=== PATIENT | female | born 1950 | race African-American/Black ===

== ENCOUNTER 2024-06-23 11:33 | Inpatient (IN) | payer MEDICARE, OTHER ==
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
[2024-06-23] MEDS: MORPHINE SULFATE 4 MG/ML SYRINGE IVP STA (12:44)
[2024-06-23] MEDS: KETOROLAC 15 MG/ML 1 ML VIAL IVP STA ×2 (12:45→14:32)
[2024-06-23] MEDS: SODIUM CHLORIDE 0.9% 1,000 ML IV ONE (12:45)
[2024-06-23 12:50] LABS: Basophils % (A) 1 %; Eosinophils # (A) 0.1 k/uL (0-0.7); Eosinophils % (A) 2 %; HCT 43.9 % (34.0-46.0); HGB 13.7 gm/dL (11.4-16.0); Hypochromasia Slight; Lymphocytes % (A) 42 %; MCH 28.9 pg (25.0-35.0); MCHC 31.3 g/dL (31.0-37.0); MCV 92.5 fL (80.0-100.0); Mean Platelet Volume 7.9; Monocytes # (A) 0.3 k/uL (0-1.0); Monocytes % (A) 5 %; Neutrophils # (A) 3.4 k/uL (1.3-7.7); Neutrophils % (A) 48 %; Platelet Count 303 k/uL (150-450); RBC 4.74 m/uL (3.80-5.40); RDW 14.1 % (11.5-15.5); WBC 7.1 k/uL (3.8-10.6)
[2024-06-23 13:05] LABS: ALT 15 U/L (4-34); AST 19 U/L (14-36); African American GFR (CKD) 83 (>60 ml/min/1.73 sqM); Albumin 5.1 g/dL (3.5-5.0); Alkaline Phosphatase 110 U/L (38-126); Anion Gap 11 mmol/L; Blood Urea Nitrogen 13 mg/dL (7-17); Calcium 9.6 mg/dL (8.4-10.2); Carbon Dioxide 27 mmol/L (22-30); Chloride 103 mmol/L (98-107); Creatine Kinase 203 U/L (30-135); Glucose 108 mg/dL (74-99); Non-African American GFR(CKD) 72 (>60 ml/min/1.73 sqM); Potassium 3.9 mmol/L (3.5-5.1); Sodium 141 mmol/L (137-145); Total Bilirubin 0.6 mg/dL (0.2-1.3); Total Protein 8.9 g/dL (6.3-8.2)
[2024-06-23 13:27] LABS: Appearance,Urine Clear (Clear); Bacteria,Urine Rare /hpf; Bilirubin,Urine Negative (Negative); Blood,Urine Negative (Negative); Color,Urine Light Yellow; Glucose,Urine (UA) Negative (Negative); Ketones,Urine Negative (Negative); Leukocyte Esterase,Urine Negative (Negative); Mucus,Urine Rare /hpf; Nitrite,Urine Negative (Negative); Protein,Urine 1+ (Negative); Specific Gravity,Urine 1.016 (1.001-1.035); Squamous Epithelial Cell,Urine 1 /hpf (0-4); WBC,Urine <1 /hpf (0-5)
--- NOTE | 2024-06-23 13:39 | CT ---
EXAMINATION TYPE: CT abdomen pelvis w con DATE OF EXAM: 06/23/2024 COMPARISON: None CLINICAL INDICATION: Female, 73 years old with history of Lower abdominal pain; PHH, Lower abdominal pain. TECHNIQUE: Performed without Oral Contrast and with IV Contrast, patient injected with 100 ml mL of Isovue 300. CT DLP: 1417.[address] CTDI: mGy Automated exposure control for dose reduction was used. FINDINGS: There are mild chronic interstitial and groundglass opacities in the visualized lung bases but no par enchymal consolidation or pleural effusion. The gallbladder is normal without distention, wall thickening, pericholecystic fluid or gallstones. T here is no biliary ductal dilatation. There is no focal mass or organomegaly involving the liver, pancreas, spleen or adrenal glands. There is no solid renal mass or hydronephrosis and there is homogeneous contrast enhancement of the r enal parenchyma. There is a 3 cm simple cortical cyst left kidney. The caliber the abdominal aorta is normal is no retroperitoneal adenopathy or hemorrhage. The bowel loops are normal in caliber and there is no evidence of dilatation or obstruction. No infla mmatory changes are identified in the bowel wall or mesentery. There is no free intraperitoneal air or fluid. No pelvic mass, free fluid, abscess or adenopathy. The osseous structures and soft tissues are intact. IMPRESSION: No significant abnormality seen. [facility], , 06/23/2024 1:37 PM
[2024-06-23] MEDS: HYDROmorphone 1 MG/ML 1 ML SYRINGE IVP STA (14:33)
--- NOTE | 2024-06-23 16:01 | XR ---
EXAMINATION TYPE: XR femur bilateral, XR tibia fibula bilateral DATE OF EXAM: 06/23/2024 CLINICAL INDICATION: Female, 73 years old with history of Pain, pain TECHNIQUE: Two views of the bilateral femurs and legs are obtained. COMPARISON: None FINDINGS: There is abnormal appearance beginning proximal diaphysis extending to the mid to distal d iaphysis of the left femur. There is loss of straight shape with medullary volume loss and cortical t hickening. No obvious bony destruction. Clinical Correlation if there has been remote trauma/fracture and malunion. Otherwise Other etiologies need to be pursued including primary bone lesion. Findings are more concerning if the pain is localized to this level. No suspicious findings in either leg or right femur. Overlying soft tissues are unremarkable [place]. IMPRESSION: As above. [facility], , 06/23/2024 3:59 PM
[2024-06-23] MEDS ORDERED: ACETAMINOPHEN TAB 325 MG TAB PO PRN (18:06)
[2024-06-23] MEDS ORDERED: ONDANSETRON 4 MG/2 ML VIAL IVP PRN (18:06)
[2024-06-23] MEDS ORDERED: NALOXONE 0.4 MG/ML 1 ML VIAL IV PRN (18:06)
[2024-06-23] MEDS ORDERED: IBUPROFEN 400 MG TAB PO PRN (18:06)
[2024-06-23] MEDS: HYDROmorphone 1 MG/ML 1 ML SYRINGE IVP PRN (18:55)
[2024-06-23] MEDS: QUEtiapine 200 MG TAB PO SCH (21:07)
[2024-06-23] MEDS: cloNIDine HCL 0.2 MG TAB PO SCH (21:07)
[2024-06-23] MEDS: IPRATROPIUM-ALBUTEROL 3 ML NEB INHALATION SCH (21:34)
[2024-06-23] MEDS: hydrALAZINE HCL 50 MG TAB PO SCH (22:30)
[2024-06-23] MEDS: Acetaminophen-Codeine 300-30mg TAB PO SCH (22:33)
[2024-06-24] MEDS: PANTOPRAZOLE 40 MG/10 ML VIAL IV SCH (08:28)
--- NOTE | 2024-06-24 12:49 | XR ---
EXAMINATION TYPE: XR lumbar spine 2 or 3V DATE OF EXAM: 06/24/2024 CLINICAL INDICATION: Female, 73 years old with history of pain, pain TECHNIQUE: Frontal and lateral images of the lumbar spine are obtained. COMPARISON: CT abdomen and pelvis from 1 day earlier FINDINGS: There are 5 lumbar type vertebral bodies identified. The lumbar spine shows persistent gr glynn 1 anterolisthesis L4 on L5. Vertebral body heights are maintained. There is moderate disc space n arrowing at L4-L5 level redemonstrated. Overlying arterial vascular calcification is again seen IMPRESSION: As above. [facility], , 06/24/2024 12:47 PM
[2024-06-24] MEDS: HYDROcodone/APAP 5-325MG 1 EACH TAB PO PRN (13:02)
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
[2024-06-24] MEDS: methylPREDNISolone SOD SUCCI 40 MG/ML 1 ML VIAL IV SCH (18:27)
[2024-06-24] MEDS: clonazePAM 1 MG TAB PO SCH (21:37)
--- NOTE | 2024-06-25 07:52 | CT ---
EXAMINATION TYPE: CT chest wo con DATE OF EXAM: 06/25/2024 COMPARISON: None CLINICAL INDICATION: Female, 73 years old with history of cap; PHH, CAP TECHNIQUE: CT scan of the thorax is performed without IV contrast. CT DLP: [address] CTDI: mGy Automated exposure control for dose reduction was used. FINDINGS: There are scattered mild interstitial changes and mild groundglass opacities in the lung bases. These are nonspecific findings and could reflect mild atelectasis with interstitial scarring or fibrosis. The possibility of an acute primarily interstitial inflammatory process is not excluded. There is no airspace consolidation. There is no pleural effusion or pneumothorax. There is no mediastinal, hilar or axillary adenopathy. Limited scanning of the upper abdomen shows no gross abnormality. No focal osseous lesions are seen. IMPRESSION: FINDINGS: Mild groundglass opacities in the lung bases and scattered interstitial opacities as described above. Represent mild chronic changes or a mild acute interstitial inflammation. There is no prior study fo r comparison. [facility], Workstation: [facility], 06/25/2024 7:50 AM
--- NOTE | 2024-06-25 07:56 | CT ---
EXAMINATION TYPE: CT lumbar spine wo con DATE OF EXAM: 06/25/2024 7:44 AM COMPARISON: CLINICAL INDICATION: Female, 73 years old with history of spinal stenosis; PHH, Spinal Stenosis TECHNIQUE: Unenhanced CT of the lumbar spine was performed. Bone and soft tissue window settings are submitted as well as coronal and sagittal reconstructions. CT DLP: [address] CTDI: mGy Automated exposure control for dose reduction was used. FINDINGS: The lumbar vertebral segments are normal in height and there is no evidence of fracture. There is a grade 1 anterolisthesis of L4 on L5 and there is mild L4-5 disc space narrowing indicative of mild degenerative disc disease. The remaining intervertebral disc spaces are well preserved in he ight. There are no large lumbar disc herniations. Small herniations cannot be definitively excluded w ith this technique. There is moderate facet degeneration at the L4-5 and L5-S1 levels. The visualized sacrum and SI joint s normal. Secondary to facet degeneration, thickening of ligamentum flavum and circumferential disc bulge, ther e is a severe spinal stenosis at the L4-5 level. There is no bony neural foraminal stenosis. IMPRESSION: 1. No lumbar spine fracture. 2. Grade 1 anterolisthesis of L4 on L5. 3. Severe L4-5 spinal stenosis 4.Advanced facet degeneration at the L4-5 and L5-S1 levels. [facility], , 06/25/2024 7:54 AM
--- NOTE | 2024-06-25 11:39 | P.CNOR ---
History of Present Illness - [facility] Consult date: 06/25/24 Requesting physician: Sarmad Rubio Consult reason: other (lumbar neuritis) History of present illness: Patient is a 73-year-old female who presents to the emergency department at [facility] yesterday due to lower abdominal/pelvic pain. Orthopedic- spine was consulted by medicine due to lumbar neuritis. Patient was seen at bedside this morning lying in the semirecumbent position on 6 N. patient states she has had back pain for many years and it has gotten worse over the past 3 weeks. Patient does not recall any specific event that occurred 3 weeks ago that led to an increase in pain. Patient states she was just doing every day activities. Patient states she gets increased pain when she tries to stand up. Patient denies the use of a walker or cane at home. Patient denies any falls/traumas. Patient repeatedly states that she has pain in her bones in her legs and is not able to quantify or qualify areas/location of pain in the back or the legs during history. Patient denies any previous orthopedic spine surgery. Patient attempted to take Tylenol No. 3 without any relief in symptoms. Patient denies any saddle anesthesia or issues with bowel/bladder control. Past Medical History Past Medical History: Hypertension Additional Past Medical History / Comment(s): back pain History of Any Multi-Drug Resistant Organisms: None Reported Additional Past Surgical History / Comment(s): tubal Past Psychological History: Bipolar, Depression Smoking Status: Current every day smoker Past Alcohol Use History: None Reported Past Drug Use History: None Reported Medications and Allergies Home Medications Medication Instructions Recorded Confirmed Type cloNIDine HCL [Catapres] 0.2 mg PO BID 01/08/15 06/23/24 History Acetaminophen-Codeine 300-30mg 1 tab PO TID 06/23/24 06/23/24 History [Tylenol w/codeine #3] Ipratropium-Albuterol Nebulize 3 ml INHALATION RT-BID 06/23/24 06/23/24 History [Duoneb 0.5 mg-3 mg/3 ml Soln] QUEtiapine [SEROquel] 200 mg PO HS 06/23/24 06/23/24 History hydrALAZINE HCL [Apresoline] 50 mg PO TID 06/23/24 06/23/24 History Allergies Allergy/AdvReac Type Severity Reaction Status Date / Time trazodone Allergy Unknown Verified 06/23/24 13:45 Physical Examination *Patient denied wanting any physical exam*and repeatedly stated that she is having pain in in the bones in her legs and did not want anyone to examine her Results - Labs Labs: H & H 06/23/24 Range/Units 12:40 Hgb 13.7 (11.4-16.0) gm/dL Hct 43.9 (34.0-46.0) % Result Diagrams: 06/23/24 12:40 06/23/24 12:40 - Diagnostic results CT Scan - lumbar: report reviewed, image reviewed (CT scan lumbar spine has been reviewed. Negative for any evidence of vertebral compression fracture throughout. Positive for central canal stenosis at L4-5 as well as anterior lis thesis of L4 and L5. Positive for degenerative disc disease) Assessment and Plan Assessment: 1. Grade 1 anterolisthesis of L4 and L5; central canal stenosis, L4-5; degenerative disc disease; lumbar spondylosis; low back pain Plan: 1. Grade 1 anterolisthesis of L4 and L5; central canal stenosis, L4-5; degenerative disc disease; lumbar spondylosis; low back pain- CT scan lumbar spine has been reviewed. Negative for any evidence of vertebral compression fracture throughout. Positive for central canal stenosis at L4-5 as well as anterolisthesis of L4 and L5. Positive for degenerative disc disease. Based on findings from imaging and with inability to perform exam due to patient denying any physical examination, orthopedicsspine recommending conservative treatment at this time with PT/OT and pain medication and steroids to help with symptoms. Patient may benefit from epidural steroid injection. At this time we will defer the rest of the management to the medicine team and are recommending potential consult to pain management for further recommendations. Patient may follow-up in the outpatient setting with Dr. Cisneros as needed for spine. At this time orthopedicsspine is signing off. Please do not hesitate to contact us for any further questions. 2. Appreciate medical management 3. Pain management -[place]; Tylenol with codeine 4. DVT prophylaxis -mechanical 5. GI prophylaxis -Protonix 6. PT/OT -weightbearing as tolerated with walker and assistance as needed 7. Encourage incentive spirometer use 8. Appreciate consult Time with Patient: Less than 30
[2024-06-25] MEDS: NICOTINE 21MG/24HR PATCH TRANSDERM SCH (15:37)
[2024-06-25] MEDS: KETOROLAC 15 MG/ML 1 ML VIAL IVP PRN (15:42)
[2024-06-26] MEDS: amLODIPine 5 MG TAB PO SCH (02:52)
[2024-06-27] MEDS: HYDROcodone/APAP 10-325MG 1 EACH TAB PO PRN ×2 (09:13→19:54)
--- NOTE | 2024-06-27 13:46 | NM ---
EXAMINATION TYPE: NM bone scan whole body DATE OF EXAM: 06/27/2024 1:39 PM CLINICAL INDICATION:Female, 73 years old with history of leg pain immobility; COMPARISON: 06/23/2024. TECHNIQUE: Intravenous administration 22.6 mCi Tc 99m MDP followed by multiple scintigraphic images o f the appendicular and axial skeleton. Additionally, small field of view planar anterior and posterio r images of the lumbosacral spine and pelvis. Lastly, coronal, transverse, and sagittal SPECT images of the lumbosacral spine and pelvis were generated for review.Lastly, small [id number] anterior, p osterior and lateral views of the chest were submitted for review. Images acquired 5.5 hours post injection. FINDINGS: No abnormal uptake is identified within the appendicular or axial skeleton to suggest metastatic dise ase. Radiotracer uptake within the expected location of the right patella is asymmetric. There is increased uptake within the bilateral shoulder, sternoclavicular, and sacroiliac joints con sistent with degenerative changes. No other photopenic areas or areas of increased activity are ident ified. Physiologic radiotracer activity is demonstrated in the kidneys and bladder. IMPRESSION: 1. Uptake within the expected location of the right patella possibly femur. Further evaluation with MRI recommended. No definitive correlate on x-ray 06/23/2024. 2. Nothing to suggest metastatic disease. [facility], , 06/27/2024 1:44 PM
--- NOTE | 2024-06-27 14:21 | HP ---
HISTORY AND PHYSICAL female, came in with left leg severe weakness, paralysis, unable to move her legs. She had x-rays that show severe knee arthritis. Lumbar x-ray shows degenerative disk disease in her spine. X-ray of the femurs, no suspicious findings. Abdominal pelvic CT shows cortical cysts, ground-glass opacities in the lung bases. We will start IV steroids. Neurosurgery to see her. CAT scan of her lumbar spine. PT/OT, steroids, bone scan. PROGNOSIS: Guarded. MMODL / IJN: [id number] /
--- NOTE | 2024-06-27 14:21 | PN ---
PROGRESS NOTE A 73-year-old female, discussed with her severe degenerative disk disease and we had Neurosurgery to see her for that. Severe osteoarthritis of knee. PT, OT seeing her. She is getting IV steroids, which appeared to be helping her. Labs reviewed. Vital signs are stable. She has low proteins and elevated CPK. Wait for Orthopedic and Neurosurgery consults. Possible epidural shot on Thursday. Prognosis guarded. MMODL / IJN: [id number] /
--- NOTE | 2024-06-27 14:22 | PN ---
PROGRESS NOTE We will get PT/OT involved to move her legs more, get her walking. Possibly get an epidural in the lumbar spine tomorrow hopefully. Dr. Cisneros consulted for severe lumbar stenosis, which is limiting her walking due to her leg weakness. Solu-Medrol is stopped and her knees have gotten better with severe osteoarthritis of her knees. PHYSICAL EXAMINATION: VITAL SIGNS: Stable, afebrile. CARDIOVASCULAR: S1, S2. LUNGS: Clear. GI: Soft. EXTREMITIES: Strength 3/5 times 4 extremities. ASSESSMENT: 1. Retractable leg pain. 2. Severe lumbar neuropathy. 3. Severe arthritis in the knees. Prognosis is guarded. Continue current treatments. Change pain medicine to [place] 10 as current meds are not working. MMODL / IJN: [id number] /
[2024-06-27] MEDS: HYDROmorphone 0.5 MG/0.5 ML SYRINGE IVP PRN (17:41)
[2024-06-27] MEDS: HEPARIN SODIUM,PORCINE 5,000 UNIT/ML 1 ML VIAL SQ SCH (17:42)
--- NOTE | 2024-06-28 04:04 | PN ---
PROGRESS NOTE SUBJECTIVE: A 73-year-old white female, leg immobility, severe back pain, has an appointment to get epidural tomorrow. OBJECTIVE: CARDIOVASCULAR: S1, S2. HEMATOLOGY: Negative Homans. PSYCH: Fair mood and affect. MUSCULOSKELETAL: Range of motion limited over legs, weakness. PT, OT and possible epidural shot in the morning. Possibly follow up for epidural shot for possible discharge. MMODL / IJN: [id number] /
--- NOTE | 2024-06-28 08:10 | P.PAINPG ---
Objective - Vital Signs Vital signs: Vital Signs Temp 98.2 F 06/28/24 07:57 Pulse 69 06/28/24 07:57 Resp 16 06/28/24 07:57 BP 172/83 06/28/24 07:57 Pulse Ox 98 06/28/24 07:57 FiO2 Intake & Output 06/27/24 06/28/24 06/28/24 18:59 06:59 18:59 Intake Total 598 Balance 598 Intake: Oral 598 Other: Voiding Method Toilet Toilet # Voids 2 2 - Labs CBC & Chem 7: 06/23/24 12:40 06/23/24 12:40 PQRS Measure Charge Sheet Comment: HISTORY OF PRESENT ILLNESS: A 73 yr old inpatient female as a referral from Dr Rubio presents today w severe acute LBP secondary to radiculopathy, spondylosis and facet arthropathy without myelopathy for evaluation. Pt states pain level is provoked at 10 /10 in intensity, constant, localized in the lumbar spine, predominantly axial, sharp in character w occasional shooting pain towards the LEs. Pain is provoked by any movement. Pain is alleviated by medications, repositioning and rest . PMH: OA, HTN, MDD/ Anxiety/ Bipolar PSH: Tubal SH: Daily tobacco use, No ETOH abuse, No illicit drug use FH: Non contributory All: See list Meds: See list incl [place] 10/325mg q4h prn, Ibu 400mg q5h prn, Dilaudid 0.5mg q6h prn REVIEW OF ORGAN SYSTEMS: CONSTITUTIONAL: No fevers or chills. No recent weight loss. NEUROLOGICAL: + numbness and tingling along the distal extremities. No seizure disorders or headaches. MUSCULOSKELETAL: + pain PSYCHIATRIC: Denies current depression or suicidal thoughts. Physical Examinations : Constitutional : Cooperative , not in acute distress . Neurologic : Cranial nerve II to XII intact. No focal neurological deficits. Psychiatric : alert & oriented x 3. Matching mood & appropriate affect. Judgment & insight intact. Musculoskeletal : Cervical Spine Motor strength in the deltoid and biceps: Normal right side. Normal Left side Motor strength biceps and the wrist extensors: Normal right side . Normal left side Motor strength in the triceps muscle: Normal right side. Normal left side Deep tendon reflexes: Normal at the biceps. Normal at Brachioradialis. Normal at triceps Vertebral body tenderness to deep palpation over Cervical facet loading test: positive bilaterally Spurling test: positive bilaterally Neck distraction test: positive bilaterally Linnea sign: positive bilaterally Lumbar spine Motor strength lower extremities ,thigh and legs 5/5 Right side , 5/5 Left side Deep tendon reflexes : Normal Knee Jerk. Normal Ankle Jerk Vertebral body tenderness over L4 Portillo Test positive BL L4-L5 Lumbar facet Loading Test: positive Right / positive Left Range of motion of the lumbar spine Flexion 30 degrees, extension 10 degrees Straight Leg Raise test: Left/ Right positive at degrees Arturo test: positive right / positive left. Severe tenderness over the Sacroiliac joint on the Right / Left sides Gaenslen test: positive bilaterally Seated flexion test: positive bilaterally. Sacral spine : Severe tenderness over the Sacroiliac joint: right side / left side Range of motion: Flexion of the lumbar spine <60 degrees Range of motion: Extension of the lumbar spine <20 degrees Gaenslen's Test positive Arturo test: positive right side / left side Thigh Thrust Test Sacral Thrust Test Imaging: CT non contrast lumbar spine from 06/25/24 reviewed Assessment/ Plan : L4-L5 anterolisthesis, Severe L4-L5 stenosis, L4-S1 advanced facet degeneration Recommendation of TERRY L4-L5 #1. Risks, benefits of procedure discussed and patient verbalized understanding. Admits to anti- coagulant use or medical history of diabetes. Protocol for discontinuation/ continuation of medications hieu procedure discussed. Minimal anesthesia provided, if clinically indicated, consisting of Versed and Fentanyl. All questions answered. I have spent greater than 30 minutes on patient care today. Dr Landrum was available by phone for the evaluation of this patient. The time was used to review the medical records including relevant urine studies and Prescription history (MAPs), review of the available imaging, evaluation and examination of the patient, coordination of care with the medical staff and if applicable referring physicians, as well as creation of the medical record - Pain Location Bilateral Leg Non-Pharmacological Interventions: Position/Reposition Pharmacological Interventions: Discuss Pain Med Options, PRN Medication Generalized Non-Pharmacological Interventions: Darkened Room, Distraction, Emotional/Spiritual Support, Environmental Control Pharmacological Interventions: Discuss Pain Med Options, PRN Medication PQRS Narrative: Smoking Status Current every day smoker Blood Pressure [Left Arm] 163/95 Blood Pressure [Right Arm] 172/83 Blood Pressure 138/71 Pain Intensity [Generalized] 10 Pain Intensity [Bilateral Leg] 8 Pain Intensity 0 Pain Scale Used Lind-Haji (Faces) Scale Used Numeric (1 - 10) Home Medications: Ambulatory Orders cloNIDine HCL [Catapres] 0.2 mg PO BID 01/08/15 Acetaminophen-Codeine 300-30mg [Tylenol w/codeine #3] 1 tab PO TID 06/23/24 Ipratropium-Albuterol Nebulize [Duoneb 0.5 mg-3 mg/3 ml Soln] 3 ml INHALATION RT-BID 06/23/24 QUEtiapine [SEROquel] 200 mg PO HS 06/23/24 hydrALAZINE HCL [Apresoline] 50 mg PO TID 06/23/24 Controlled Substance Measures - Controlled Substance Measures Is patient prescribed a controlled substance at discharge?: No
[2024-06-28] MEDS: IV FLUID CONTINUATION 1,000 ML IV ONE (15:06)
[2024-06-28 15:11] LABS: Glucose,Whole Blood 116 mg/dL (70-110)
[2024-06-28] MEDS ORDERED: fentaNYL (PF) 50 MCG/ML 2 ML AMP ONE (15:25)
[2024-06-28] MEDS ORDERED: methylPREDNISolone ACETATE 80 MG/ML 1 ML VIAL ONE (15:25)
[2024-06-28] MEDS ORDERED: IOPAMIDOL M300 15ML VIAL ONE (15:25)
[2024-06-28] MEDS ORDERED: MIDAZOLAM 2 MG/2 ML VIAL ONE (15:25)
--- NOTE | 2024-06-28 15:41 | P.PCN ---
Date of Procedure: 06/28/24 Procedure(s) Performed: PREOPERATIVE DIAGNOSIS: 1- Lumbar radiculopathy 2-Lumbar spondylosis with Facet arthropathy without myelopathy. 3-lumbar spinal stenosis POSTOPERATIVE DIAGNOSIS: 1-lumbar radiculopathy 2-lumbar spondylosis with facet arthropathy without myelopathy. 3-lumbar spinal stenosis. PROCEDURE 1. Lumbar epidural steroid injection under fluoroscopic guidance at the L4-5 level. (Fluoroscopy imaging was available in radiology department) 2. Lumbar epidurogram. ANESTHESIA: Moderate sedation with Versed 2 mg , and fentanyl 100 micrograms, sedation started at 15:25 , ended at 15:36 ) EBL: Minimal PROCEDURE INDICATION: The patient with low back pain and radiculitis symptoms unresponsive to conservative treatment. Fluoroscopy was used to optimize visualization of the needle placement and to maximize safety. PROCEDURE DESCRIPTION / TECHNIQUE: The patient was seen and identified in the preoperative area. Risks, benefits, complications including but not limited to infections ,bleeding ,allergic reaction to the medications ,nerve damage and not complete pain releife , and alternatives were discussed with the patient. The patient agreed to proceed with the procedure and signed the consent, and vital signs were stable. Patient was taken to the OR and time out was completed. The patient was placed in the prone position on procedure table and a pillow was placed under the abdomen to reduce lumbar lordosis. The lumbosacral area was prepped and draped in the usual sterile fashion.ere closely monitored during the procedure. Vital signs was monitered during the entire procedure. Using anterior-posterior fluoroscopy, the L4-5 interlaminar space was identified and the skin over this site was marked and then infiltrated with 1% lidocaine subcutaneously. Subsequently, a 20-gauge Tuohy epidural needle was inserted and advanced toward the epidural space using the ``Loss of resistance technique and guided by AP and lateral fluoroscopy. The correct needle position in the epidural space was verified with the injection of 2 mL of the water soluble contrast dye Isovue 200 contrast and observing an excellent epidurogram with the epidural spread of the dye, after negative aspiration for blood and CSF and in the absence of paresthesias. Again after negative aspiration, a 6 ml mixture containing 60 mg of Depo-medrol ( Preservetive Free ), and 2 ml of preservative free Normal Saline, and 2 ml of preservative free lidocaine 1% solution was injected and a washout of epidurogram was seen. Needle was withdrawn intact, skin was cleansed, and bandages were applied. COMPLICATIONS: None DISPOSITION / PLANS: The patient was placed in a supine position and transferred to the recovery area in a stable condition for observation. There was no evidence of lower extremity motor or sensory deficit after the procedure. Patient was discharged from the recovery room after meeting discharge criteria. Home discharge instructions were given to the patient by the staff. The patient was reexamined prior to discharge. The patient will schedule a follow up in the clinic in 2-4 weeks.
--- NOTE | 2024-06-28 15:47 | FL ---
EXAMINATION TYPE: FL guided pain mgmt statistic DATE OF EXAM: 06/28/2024 3:40 PM COMPARISON: Pre Operative Images if available both CT/MRI or plain film CLINICAL INDICATION: Female, 73 years old with history of LESI; TECHNIQUE: FL guided pain mgmt statistic, multiple fluoroscopic images provided for procedure. DAP: 0.1295 mGym2 Gycm2 uGym2 cGycm2 or equivalent. FINDINGS: Fluoroscopic images during injection for pain management demonstrate multilevel degeneration changes throughout the spine. No evidence for fracture. No acute process identified. IMPRESSION: 1. No evidence for intraoperative complication. 2. Please see the operative/procedural note for further details. [facility], , 06/28/2024 3:44 PM
[2024-06-28] MEDS: amLODIPine 10 MG TAB PO STA (16:37)
--- NOTE | 2024-06-28 23:25 | PN ---
PROGRESS NOTE She is an female, 73-year-old. She had an epidural today on the lumbar spine and now, she can move her legs really. She is going to go home in the morning. The patient with PT/OT. OBJECTIVE: CARDIOVASCULAR: S1, S2. LUNGS: Clear. GI: Soft. ASSESSMENT: 1. Intractable leg pain, status post lumbar epidural for lumbar radiculopathy. 2. Severe osteoarthritis of the knees. PT/OT. Should go home tomorrow. MMODL / IJN: [id number] /
[2024-06-29 07:54] VITALS: RESP 17
[2024-06-29 14:50] VITALS: BP 142/93; PULSE 85; TEMP 97.8
== END 2024-06-29 14:58 | disposition home or self-care (01) | DRG 552 ==
LOC: EC 11:33 → 6NMEDSUR 18:26 → OBSVTOIN 18:27 → 6NMEDSUR 20:13
PROVIDERS: ADMIT Family Medicine; ATTEND Family Medicine
PROC: B01B1ZZ Fluoroscopy of Spinal Cord using Low Osmolar Contrast (ICD-10-PCS; 2024-06-28)
PROC: 3E0R33Z Introduction of Anti-inflammatory into Spinal Canal, Percutaneous Approach (ICD-10-PCS; principal; 2024-06-28 11:30)
DX: M51.16 Intervertebral disc disorders with radiculopathy, lumbar region (principal); G83.9 Paralytic syndrome, unspecified; F31.9 Bipolar disorder, unspecified; I10 Essential (primary) hypertension; F17.210 Nicotine dependence, cigarettes, uncomplicated; M43.16 Spondylolisthesis, lumbar region; M17.0 Bilateral primary osteoarthritis of knee; M48.061 Spinal stenosis, lumbar region without neurogenic claudication; M47.26 Other spondylosis with radiculopathy, lumbar region; G62.9 Polyneuropathy, unspecified; M81.0 Age-related osteoporosis without current pathological fracture; Z79.899 Other long term (current) drug therapy
CPT/HCPCS: 36415; 62323; 71250; 72100; 72131; 74177; 78306; 80053; 81001; 82550; 82607; 82746; 83605; 83735; 85025; 94640; 96361; 96374; 96375; 96376; 99285; 99406

== ENCOUNTER 2024-07-17 10:35 | Emergency (ER) | payer MEDICARE, OTHER ==
[2024-07-17 10:41] VITALS: BP 142/83; PULSE 77; RESP 18; TEMP 98.3
--- NOTE | 2024-07-17 11:54 | CT ---
EXAMINATION TYPE: CT brain wo con DATE OF EXAM: 07/17/2024 COMPARISON: None CLINICAL INDICATION: Female, 73 years old with history of dizziness; PHH, fall, dizzy CT DLP: 1097.4 mGycm Automated exposure control for dose reduction was used. Findings: The ventricles, basal cisterns and sulci over the convexities are within normal limits for the patien t's age and there is no mass effect or shift of midline structures. No abnormal density is seen throughout the brain parenchyma and there is no acute intra or extra-axia l hemorrhage. The posterior fossa including the brainstem, fourth ventricle and cerebellar pontine angles appear no rmal. Intraorbital contents appear normal and symmetric. There are mild chronic inflammatory changes in the left maxillary sinus The calvarium is intact. IMPRESSION: 1. No acute bleed or mass effect. 2. Mild age appropriate senescent changes. 3. Mild chronic inflammatory changes in the left maxillary sinus [facility], , 07/17/2024 11:52 AM
[2024-07-17] MEDS: SODIUM CHLORIDE 0.9% 500 ML 500 ML IV STA (11:59)
[2024-07-17] MEDS: KETOROLAC 15 MG/ML 1 ML VIAL IVP STA ×2 (11:59→14:09)
--- NOTE | 2024-07-17 12:02 | XR ---
Lumbar spine. HISTORY: Pain following fall. COMPARISON: 06/24/2024. TECHNIQUE: 3 views of the lumbar spine were obtained. FINDINGS: The lumbar vertebral segments are normal in height and there is no fracture. There is a grade 1 anter olisthesis of L4 on L5. There is mild disc space narrowing at the L3-4 and L4-5 levels indicating mild degenerative disc dise ase. IMPRESSION: 1. No acute fracture. 2. Stable grade 1 anterolisthesis of L4 on L5. 3. Mild degenerative disease in lower lumbar spine. [facility], Workstation: [facility], 07/17/2024 12:00 PM
[2024-07-17 12:25] LABS: ALT 22 U/L (4-34); AST 17 U/L (14-36); African American GFR (CKD) >90 (>60 ml/min/1.73 sqM); Albumin 3.7 g/dL (3.5-5.0); Alkaline Phosphatase 67 U/L (38-126); Anion Gap 6 mmol/L; Blood Urea Nitrogen 23 mg/dL (7-17); Calcium 9.2 mg/dL (8.4-10.2); Carbon Dioxide 28 mmol/L (22-30); Chloride 107 mmol/L (98-107); Glucose 83 mg/dL (74-99); Magnesium 2.2 mg/dL (1.6-2.3); Non-African American GFR(CKD) 88 (>60 ml/min/1.73 sqM); Potassium 4.4 mmol/L (3.5-5.1); Sodium 141 mmol/L (137-145); Total Bilirubin 0.5 mg/dL (0.2-1.3); Total Protein 6.5 g/dL (6.3-8.2)
[2024-07-17 12:55] LABS: Basophils # (A) 0.01 10*3/uL (0.00-0.10); Basophils % (A) 0.2 %; Eosinophils # (A) 0.15 10*3/uL (0.04-0.35); Eosinophils % (A) 2.3 %; HCT 37.2 % (37.2-46.3); HGB 11.8 g/dL (12.0-15.0); Lymphocytes # (A) 2.67 10*3/uL (0.90-5.00); Lymphocytes % (A) 40.6 %; MCH 29.9 pg (27.0-32.0); MCHC 31.7 g/dL (32.0-37.0); MCV 94.4 fL (80.0-97.0); Mean Platelet Volume 10.5 fL (9.5-12.2); Monocytes # (A) 0.57 10*3/uL (0.20-1.00); Monocytes % (A) 8.7 %; Neutrophils # (A) 3.15 10*3/uL (1.80-7.70); Neutrophils % (A) 47.7 %; Platelet Count 242 10*3/uL (140-440); RBC 3.94 10*6/uL (4.10-5.20); RDW 15.3 % (11.5-14.5); WBC 6.58 10*3/uL (4.50-10.00)
--- NOTE | 2024-07-17 13:12 | ED ---
Fall HPI - General Chief Complaint: Fall Stated Complaint: light headed, pain back and legs Time Seen by Provider: 07/17/24 10:50 Source: patient, RN notes reviewed Mode of arrival: ambulatory Limitations: no limitations - History of Present Illness Initial Comments: 73-year-old female presents emergency department complaint of fall. Patient states she fell onto the bathroom on Thursday night. Patient states that she has lower back pain she states she is chronic back pain for 40 years states that she was recently increased to Percocet and was given Ativan. Patient states she feels very drowsy, lightheaded, dizzy. She had a focal weakness denies any bowel, bladder incontinence retention no saddle anesthesias. Patient has no complaints of chest pain she states she had some reflux this morning but some old Zantac which helped. Patient offers no other complaints. - Related Data Home Medications Medication Instructions Recorded Confirmed cloNIDine HCL [Catapres] 0.2 mg PO BID 01/08/15 07/17/24 Ipratropium-Albuterol Nebulize 3 ml INHALATION RT-BID 06/23/24 07/17/24 [Duoneb 0.5 mg-3 mg/3 ml Soln] QUEtiapine [SEROquel] 200 mg PO HS 06/23/24 07/17/24 hydrALAZINE HCL [Apresoline] 50 mg PO TID 06/23/24 07/17/24 Lactulose [Constulose] 10 gm PO TID PRN 07/17/24 07/17/24 clonazePAM [KlonoPIN ODT] 0.25 mg PO BID 07/17/24 07/17/24 oxyCODONE-APAP 7.5-325MG [Percocet 1 tab PO TID PRN 07/17/24 07/17/24 7.5-325 mg] predniSONE [Deltasone] 20 mg PO TID 07/17/24 07/17/24 Previous Rx's Medication Instructions Recorded Nicotine 21Mg/24Hr Patch [Habitrol] 1 patch TRANSDERM DAILY 30 Days 06/28/24 #30 patch amLODIPine [Norvasc] 5 mg PO DAILY 30 Days #30 tab 06/28/24 Lidocaine 5% Patch [Lidoderm 5% 1 patch TOPICAL DAILY #7 patch 07/17/24 Patch] Allergies Allergy/AdvReac Type Severity Reaction Status Date / Time trazodone Allergy Unknown Verified 07/17/24 15:21 Review of Systems ROS Statement: Those systems with pertinent positive or pertinent negative responses have been documented in the HPI. ROS Other: All systems not noted in ROS Statement are negative. Past Medical History Past Medical History: Hypertension Additional Past Medical History / Comment(s): back pain History of Any Multi-Drug Resistant Organisms: None Reported Additional Past Surgical History / Comment(s): tubal Past Psychological History: Bipolar, Depression Smoking Status: Current every day smoker Past Alcohol Use History: None Reported Past Drug Use History: None Reported General Exam Limitations: no limitations General appearance: alert, in no apparent distress Head exam: Present: atraumatic, normocephalic, normal inspection Eye exam: Present: normal appearance, PERRL, EOMI. Absent: scleral icterus, conjunctival injection, periorbital swelling ENT exam: Present: normal exam, normal oropharynx, mucous membranes moist Neck exam: Present: normal inspection, full ROM. Absent: tenderness, meningismus, lymphadenopathy Respiratory exam: Present: normal lung sounds bilaterally. Absent: respiratory distress, wheezes, rales, rhonchi, stridor Cardiovascular Exam: Present: regular rate, normal rhythm, normal heart sounds. Absent: systolic murmur, diastolic murmur, rubs, gallop, clicks GI/Abdominal exam: Present: soft, normal bowel sounds. Absent: distended, tenderness, guarding, rebound, rigid Extremities exam: Present: normal inspection, full ROM, normal capillary refill, other (Extremity strength equal bilaterally neurovascular intact equal color and equal warmth). Absent: tenderness, pedal edema, joint swelling, calf tenderness Back exam: Present: full ROM, tenderness, paraspinal tenderness. Absent: vertebral tenderness Neurological exam: Present: alert, oriented X3, CN II-XII intact, reflexes n ormal. Absent: motor sensory deficit Skin exam: Present: warm, dry, intact, normal color. Absent: rash Course Vital Signs 07/17/24 10:37 Temperature 98.3 F Pulse Rate 77 Respiratory 18 Rate Blood Pressure 142/83 O2 Sat by Pulse 96 Oximetry Medical Decision Making - Medical Decision Making Was pt. sent in by a medical professional or institution (, PA, SCOOP DRIVER, urgent care, hospital, or senior care...) When possible be specific @ -No Did you speak to anyone other than the patient for history (EMS, parent, family, police, friend...)? What history was obtained from this source @ -No Did you review nursing and triage notes (agree or disagree)? Why? @ -I reviewed and agree with nursing and triage notes Were old charts reviewed (outside hosp., previous admission, EMS record, old EKG, old radiological studies, urgent care reports/EKG's, senior care records)? Report findings @ -No old charts were reviewed Differential Diagnosis (chest pain, altered mental status, abdominal pain women, abdominal pain men, vaginal bleeding, weakness, fever, dyspnea, syncope, headache, dizziness, GI bleed, back pain, seizure, CVA, palpatations, mental health, musculoskeletal)? @ -Fall, lumbar strain, chronic back pain differential Back Pain: Strain, zoster, cauda equina syndrome, epidural abscess, vertebral osteomyelitis, discitis, fracture, subluxation, disc herniation, DJD, spinal stenosis, dissection, AAA, pancreatitis, peptic ulcer disease, pyelonephritis, kidney stone, this is not meant to be an all-inclusive list. EKG interpreted by me (3pts min.). @ -As above X-rays interpreted by me (1pt min.). @ -X-ray lumbar spine showing degenerative changes CT interpreted by me (1pt min.). @ -CT brain showing no acute intracranial hemorrhage, mass effect U/S interpreted by me (1pt. min.). @ -None done What testing was considered but not performed or refused? (CT, X-rays, U/S, labs)? Why? @ -None What meds were considered but not given or refused? Why? @ -None Did you discuss the management of the patient with other professionals (professionals i.e. , PA, SCOOP DRIVER, lab, RT, psych nurse, social sciences research scientist, pie chef, teacher, special forces warrant officer, pillowcase maker)? Give summary @ -[Dr. Marroquin discussed case regarding patient's EKG with Dr. Timmons Was smoking cessation discussed for >3mins.? @ -No Was critical care preformed (if so, how long)? @ -No Were there social determinants of health that impacted care today? How? (Homelessness, low income, unemployed, alcoholism, drug addiction, transportation, low edu. Level, literacy, decrease access to med. care, usp, rehab)? @ -No Was there de-escalation of care discussed even if they declined (Discuss DNR or withdrawal of care, Hospice)? DNR status @ -No What co-morbidities impacted this encounter? (DM, HTN, Smoking, COPD, CAD, Cancer, CVA, ARF, Chemo, Hep., AIDS, mental health diagnosis, sleep apnea, morbid obesity)? @ -None Was patient admitted / discharged? Hospital course, mention meds given and route, prescriptions, significant lab abnormalities, going to OR and other pertinent info. @ -Discharge patient presented after fall please medication-induced as patient is on multiple medications creasing drowsiness. Patient states her back pain is improved she is not having complaints of chest pain any focal weakness dizziness was resolved. Patient did have full workup including labs EKG repeat EKG CT and x-rays. Patient has no red flag symptoms. Patient is discharged in stable condition. Undiagnosed new problem with uncertain prognosis? @ -No Drug Therapy requiring intensive monitoring for toxicity (Heparin, Nitro, Insulin, Cardizem)? @ -No Were any procedures done? @ -No Diagnosis/symptom? @ -Back pain, fall Acute, or Chronic, or Acute on Chronic? @ -Acute on chronic Uncomplicated (without systemic symptoms) or Complicated (systemic symptoms)? @ -Complicated Side effects of treatment? @ -No Exacerbation, Progression, or Severe Exacerbation? @ -No Poses a threat to life or bodily function? How? (Chest pain, [place], [place], pneumonia, PE, COPD, DKA, ARF, appy, cholecystitis, CVA, Diverticulitis, Homicidal, Suicidal, threat to staff... and all critical care pts) @ -No - Lab Data Result diagrams: 07/17/24 12:36 07/17/24 12:00 Lab Results 07/17/24 07/17/24 07/17/24 Range/Units 11:35 12:00 12:04 WBC (4.50-10.00) 10*3/uL RBC (4.10-5.20) 10*6/uL Hgb (12.0-15.0) g/dL Hct (37.2-46.3) % MCV (80.0-97.0) fL MCH (27.0-32.0) pg MCHC (32.0-37.0) g/dL Plt Count (140-440) 10*3/uL MPV (9.5-12.2) fL Immature Gran % (Auto) % Neutrophils % % Lymphocytes % % Monocytes % % Eosinophils % % Basophils % % Immature Gran # (0.00-0.04) 10*3/uL Neutrophils # (1.80-7.70) 10*3/uL Lymphocytes # (0.90-5.00) 10*3/uL Monocytes # (0.20-1.00) 10*3/uL Eosinophils # (0.04-0.35) 10*3/uL Basophils # (0.00-0.10) 10*3/uL PT 11.0 (10.0-12.5) sec INR 1.0 (<1.2) APTT 21.0 L (22.0-30.0) sec Sodium 141 (137-145) mmol/L Potassium 4.4 (3.5-5.1) mmol/L Chloride 107 (98-107) mmol/L Carbon Dioxide 28 (22-30) mmol/L Anion Gap 6 mmol/L BUN 23 H (7-17) mg/dL Creatinine 0.69 (0.52-1.04) mg/dL Est GFR (CKD-EPI)AfAm >90 (>60 ml/min/1.73 sqM) Est GFR (CKD-EPI)NonAf 88 (>60 ml/min/1.73 sqM) Glucose 83 (74-99) mg/dL Calcium 9.2 (8.4-10.2) mg/dL Magnesium 2.2 (1.6-2.3) mg/dL Total Bilirubin 0.5 (0.2-1.3) mg/dL AST 17 (14-36) U/L ALT 22 (4-34) U/L Alkaline Phosphatase 67 (38-126) U/L Troponin I 0.019 (0.000-0.034) ng/mL Total Protein 6.5 (6.3-8.2) g/dL Albumin 3.7 (3.5-5.0) g/dL 07/17/24 07/17/24 Range/Units 12:36 14:35 WBC 6.58 (4.50-10.00) 10*3/uL RBC 3.94 L (4.10-5.20) 10*6/uL Hgb 11.8 L (12.0-15.0) g/dL Hct 37.2 (37.2-46.3) % MCV 94.4 (80.0-97.0) fL MCH 29.9 (27.0-32.0) pg MCHC 31.7 L (32.0-37.0) g/dL Plt Count 242 (140-440) 10*3/uL MPV 10.5 (9.5-12.2) fL Immature Gran % (Auto) 0.5 % Neutrophils % 47.7 % Lymphocytes % 40.6 % Monocytes % 8.7 % Eosinophils % 2.3 % Basophils % 0.2 % Immature Gran # 0.03 (0.00-0.04) 10*3/uL Neutrophils # 3.15 (1.80-7.70) 10*3/uL Lymphocytes # 2.67 (0.90-5.00) 10*3/uL Monocytes # 0.57 (0.20-1.00) 10*3/uL Eosinophils # 0.15 (0.04-0.35) 10*3/uL Basophils # 0.01 (0.00-0.10) 10*3/uL PT (10.0-12.5) sec INR (<1.2) APTT (22.0-30.0) sec Sodium (137-145) mmol/L Potassium (3.5-5.1) mmol/L Chloride (98-107) mmol/L Carbon Dioxide (22-30) mmol/L Anion Gap mmol/L BUN (7-17) mg/dL Creatinine (0.52-1.04) mg/dL Est GFR (CKD-EPI)AfAm (>60 ml/min/1.73 sqM) Est GFR (CKD-EPI)NonAf (>60 ml/min/1.73 sqM) Glucose (74-99) mg/dL Calcium (8.4-10.2) mg/dL Magnesium (1.6-2.3) mg/dL Total Bilirubin (0.2-1.3) mg/dL AST (14-36) U/L ALT (4-34) U/L Alkaline Phosphatase (38-126) U/L Troponin I 0.030 (0.000-0.034) ng/mL Total Protein (6.3-8.2) g/dL Albumin (3.5-5.0) g/dL - EKG Data -: EKG Interpreted by Me EKG Comments: EKG performed at 11: 09 sinus rhythm rate of 71 AL 135 QRS 90 QT/QTc 404/[address] in V1 V2 and V3 no prior EKG Repeat EKG at 12: 14 sinus rhythm rate of 67 AL 141 QRS 86 QT/QTc 414/[address] elevation in V1 V2 V3 consistent with early repull no reciprocal changes. Disposition Clinical Impression: Fall, Chronic back pain Disposition: HOME SELF-CARE Condition: Stable Instructions (If sedation given, give patient instructions): Chronic Back Pain (DC) Additional Instructions: Please return to the Emergency Department if symptoms worsen or any other concerns. Prescriptions: Lidocaine 5% Patch [Lidoderm 5% Patch] 1 patch TOPICAL DAILY #7 patch Is patient prescribed a controlled substance at d/c from ED?: No Referrals: Sarmad Rubio MD [Primary Care Provider] - 1-2 days Time of Disposition: 15:23
[2024-07-17] MEDS: LIDOCAINE 4% PATCH TOPICAL ONE (14:11)
== END 2024-07-17 15:35 | disposition home or self-care (01) ==
LOC: EC 10:35
DX: G89.29 Other chronic pain (principal); M54.50 Low back pain, unspecified; F17.200 Nicotine dependence, unspecified, uncomplicated; Z88.8 Allergy status to other drugs, medicaments and biological substances; W18.30XA Fall on same level, unspecified, initial encounter; Y92.002 Bathroom of unspecified non-institutional (private) residence as the place of occurrence of the external cause
CPT/HCPCS: 36415; 93005; 80053; 83735; 84484; 85025; 85610; 85730; 72100; 70450; 99284; 96374; 96376; 96361; J1885